=== PATIENT | male | born 1995 | race Caucasian/White ===

== ENCOUNTER 2018-02-09 15:26 | Emergency (ER) | payer MEDICAID, OTHER ==
[~2018-02-09] VITALS: Ht 172.7 cm; Wt 65.0 kg
[~2018-02-09 15:26] MED LIST: GABA300C PO; LORA2TAB96 PO
[2018-02-09 15:45] VITALS: BP 126/78
[2018-02-09] MEDS ORDERED: NICO-687 TD (16:07)
== END 2018-02-09 16:24 | disposition home or self-care (01) ==
LOC: ER 15:26
DX: T40.1X1A Poisoning by heroin, accidental (unintentional), initial encounter (principal); T42.4X1A Poisoning by benzodiazepines, accidental (unintentional), initial encounter; F15.10 Other stimulant abuse, uncomplicated; F12.10 Cannabis abuse, uncomplicated; F17.200 Nicotine dependence, unspecified, uncomplicated; F14.10 Cocaine abuse, uncomplicated; Z56.0 Unemployment, unspecified; Z88.5 Allergy status to narcotic agent; Z79.899 Other long term (current) drug therapy; Z59.0 Homelessness; Y92.89 Other specified places as the place of occurrence of the external cause
CPT/HCPCS: 99282

== ENCOUNTER 2018-06-16 20:24 | Emergency (ER) | payer MEDICAID ==
[~2018-06-16] VITALS: Ht 172.7 cm; Wt 60.2 kg
[2018-06-16 20:28] VITALS: BP 134/79
[2018-06-16 20:53] LABS: CLARITY,URINE CLEAR (Clear); COLOR,URINE YELLOW (Yellow); GLUCOSE, URINE NEGATIVE (Neg); KETONES,URINE NEGATIVE (Neg); LEUKOCYTE ESTERASE ,URINE NEGATIVE (Neg); NITRITES, URINE NEGATIVE (Neg); OCCULT BLOOD,URINE TRACE-INTACT (Neg); PH,URINE 6.5 (4.8-8.0); PROTEIN,URINE NEGATIVE (Neg); UROBILINOGEN,URINE 0.2 E.U/dL (0.2-1.0)
[2018-06-16 20:59] LABS: UA COLLECTION TYPE CLN CATCH MIDSTREAM
[2018-06-16 21:00] LABS: WBC,URINE 0-4 /HPF (0-4)
[2018-06-16 21:01] LABS: BACTERIA,URINE FEW /HPF (Neg); RBC,URINE 0-2 /HPF (0-2); SQUAMOUS EPITHELIAL CELL,UR NONE SEEN /LPF (FEW)
[2018-06-16] MEDS ORDERED: azithromycin 250mg tablet PO ONE (21:05)
[2018-06-16] MEDS ORDERED: CefTRIAXone 250MG IM Kit w/LIDOcaine IM ONE (21:05)
[2018-06-16] MEDS ORDERED: ACYC-202 PO (21:43)
[2018-06-18 13:09] LABS: RPR Non Reactive (Non Reactive)
== END 2018-06-16 22:11 | disposition home or self-care (01) ==
LOC: ER 20:24
DX: A64 Unspecified sexually transmitted disease (principal); N48.89 Other specified disorders of penis; F15.90 Other stimulant use, unspecified, uncomplicated; F12.90 Cannabis use, unspecified, uncomplicated; F14.90 Cocaine use, unspecified, uncomplicated; F11.90 Opioid use, unspecified, uncomplicated; Z56.0 Unemployment, unspecified; Z88.6 Allergy status to analgesic agent; Z98.890 Other specified postprocedural states
CPT/HCPCS: 36415; 81001; 86592; 87252; 87491; 87591; 96372; 99284; J0696

== ENCOUNTER 2019-08-08 19:13 | Emergency (ER) | payer MEDICAID, OTHER ==
[~2019-08-08] VITALS: Ht 172.7 cm; Wt 64.7 kg
[2019-08-08 19:44] VITALS: BP 113/75
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
[2019-08-08] MEDS ORDERED: MUPI22OI30 TOP (21:00)
== END 2019-08-08 21:21 | disposition home or self-care (01) ==
LOC: ER 19:14
DX: S83.8X2A Sprain of other specified parts of left knee, initial encounter (principal); S40.012A Contusion of left shoulder, initial encounter; S20.229A Contusion of unspecified back wall of thorax, initial encounter; L73.9 Follicular disorder, unspecified; F32.9 Major depressive disorder, single episode, unspecified; F12.90 Cannabis use, unspecified, uncomplicated; F15.90 Other stimulant use, unspecified, uncomplicated; F11.90 Opioid use, unspecified, uncomplicated; F14.90 Cocaine use, unspecified, uncomplicated; F10.99 Alcohol use, unspecified with unspecified alcohol-induced disorder; Z59.0 Homelessness; Z56.0 Unemployment, unspecified; Z98.890 Other specified postprocedural states; Z88.5 Allergy status to narcotic agent; Z79.899 Other long term (current) drug therapy; V87.7XXA Person injured in collision between other specified motor vehicles (traffic), initial encounter; Y93.89 Activity, other specified; Y92.488 Other paved roadways as the place of occurrence of the external cause; Y99.8 Other external cause status; Y90.9 Presence of alcohol in blood, level not specified
CPT/HCPCS: 99283

== ENCOUNTER 2019-08-21 18:20 | Emergency (ER) | payer MEDICAID, OTHER ==
[~2019-08-21] VITALS: Ht 170.2 cm; Wt 71.8 kg
[2019-08-21 18:21] VITALS: BP 138/61
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
--- NOTE | 2019-08-21 19:01 | NUR ---
CALLED [facility]. CASE #:[id number]
[2019-08-21] MEDS ORDERED: CEPH-572 PO (20:05)
== END 2019-08-21 20:41 | disposition home or self-care (01) ==
LOC: ER 18:21
DX: S46.222A Laceration of muscle, fascia and tendon of other parts of biceps, left arm, initial encounter (principal); F12.90 Cannabis use, unspecified, uncomplicated; F15.90 Other stimulant use, unspecified, uncomplicated; F14.90 Cocaine use, unspecified, uncomplicated; F11.90 Opioid use, unspecified, uncomplicated; Z59.0 Homelessness; Z56.0 Unemployment, unspecified; Z88.5 Allergy status to narcotic agent; Y04.0XXA Assault by unarmed brawl or fight, initial encounter; Y93.89 Activity, other specified; Y92.89 Other specified places as the place of occurrence of the external cause; Y99.9 Unspecified external cause status
CPT/HCPCS: 12002; 99283

== ENCOUNTER 2020-03-17 09:41 | Emergency (ER) | payer SELFPAY ==
[~2020-03-17] VITALS: Ht 180.3 cm; Wt 62.0 kg
[2020-03-17 09:44] VITALS: BP 100/64
[2020-03-17] MEDS ORDERED: normal saline 1000ML IV soln IVB ONE (09:45)
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
[2020-03-17] MEDS ORDERED: naloxone 2mg/2ml inj IV ONE (10:00)
[2020-03-17 10:12] LABS: BASOPHILS % (AUTO) 0.3 % (0-1); EOSINOPHILS # (AUTO) 0.2 X10'3 (0-0.9); EOSINOPHILS % (AUTO) 1.8 % (0-6); HEMATOCRIT 41.7 % (42.0-52.0); HEMOGLOBIN 13.9 g/dl (14.0-17.9); LYMPHOCYTES % (AUTO) 21.1 % (21-51); MEAN CORPUSCULAR HGB CONC 33.3 g/dL (33.0-36.5); MEAN PLATELET VOLUME 7.1 FL (7.4-10.4); MONOCYTES # (AUTO) 0.9 X10'3 (0-0.9); MONOCYTES % (AUTO) 9.5 % (2-12); NEUTROPHILS # (AUTO) 6.3 X10'3 (1.8-7.7); NEUTROPHILS % (AUTO) 67.3 % (42-75); PLATELET COUNT 259 X10'3 (140-440); RED BLOOD COUNT 4.48 X10'6 (4.70-6.10); RED CELL DISTRIBUTION WIDTH 13.1 % (11.5-14.5); WHITE BLOOD COUNT 9.4 X10'3 (4.5-11.0)
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
[2020-03-17 10:26] LABS: ALANINE AMINOTRANSFERASE 19 U/L (12-78); ALBUMIN 3.9 G/DL (3.4-5.0); ALBUMIN/GLOBULIN RATIO 1.1 (1.1-1.5); ALKALINE PHOSPHATASE 52 IU/L (46-116); ANION GAP 11 (8-16); ASPARTATE AMINO TRANSFERASE 24 U/L (10-37); BILIRUBIN,TOTAL 0.5 MG/DL (0.1-1.0); BLOOD UREA NITROGEN 10 MG/DL (7-18); BUN/CREATININE RATIO 9.5 (5.4-32.0); CALCIUM 8.4 MG/DL (8.5-10.1); CHLORIDE 104 MMOL/L (99-107); CREATININE 1.05 MG/DL (0.60-1.10); ETHANOL 0.057 GM/DL (0.0-0.010); GLUCOSE 80 MG/DL (70-104); POTASSIUM 3.9 MMOL/L (3.5-5.1); SODIUM 141 MMOL/L (135-145); TOTAL CARBON DIOXIDE 25.7 MMOL/L (24-32); TOTAL PROTEIN 7.3 G/DL (6.4-8.2); eGFR 86 ML/MIN
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
[2020-03-17 11:08] LABS: URINE AMPHETAMINE SCREEN NEGATIVE (Neg); URINE BARBITUATE SCREEN NEGATIVE (Neg); URINE BENZODIAZEPINES SCREEN POSITIVE (Neg); URINE CANNABINOID SCREEN POSITIVE (Neg); URINE COCAINE SCREEN POSITIVE (Neg); URINE METHADONE SCREEN NEGATIVE (Neg); URINE OPIATE SCREEN NEGATIVE (Neg); URINE PHENCYCLIDINE SCREEN NEGATIVE (Neg)
== END 2020-03-17 11:13 ==
LOC: EDBD 09:42 → ER 09:42 → MERGE 09:42 → ER 11:13
DX: T65.891A Toxic effect of other specified substances, accidental (unintentional), initial encounter (principal); J96.01 Acute respiratory failure with hypoxia; F10.920 Alcohol use, unspecified with intoxication, uncomplicated; F11.90 Opioid use, unspecified, uncomplicated; Y92.89 Other specified places as the place of occurrence of the external cause
CPT/HCPCS: 36415; 71045; 80053; 80305; 80320; 85025; 93005; 96360; 99291; J7030